=== PATIENT | female | born 1970 | race Caucasian/White ===

== ENCOUNTER 2016-08-15 13:33 | Observation (INO) | payer OTHER ==
[~2016-08-15] VITALS: Ht 152.4 cm; Wt 114.3 kg
[~2016-08-15 13:33] MED LIST: ACETAZOLAMID250 MG OR; ADLT ASA LOW81 MG PO; ADVAIR DISK1 IN; ALBUTEROL S2.5 MG/.5 IN; AMOXICILLIN500 MG OR; ATENOLOL50 MG OR; ATENOLOL50 MG PO; ATUSS DS OR; CALTRATE 600 OR; CEPHALEXIN500 MG PO; CIPROFLOXACN500 MG PO; CITALOPRAM20 MG OR; CITALOPRAM20 MG PO; CYCLOBENZAPR10 MG PO; FERROUS FUM324 MG OR; FLEXERIL PO; FLEXERIL10 MG PO; GLUCOPHAGE500 MG PO; HYDROCHLOROT12.5 MG OR; HYDROCHLOROT12.5 MG PO; LISINOPRIL20 M1 PO; LORTAB 10-325 M1 TAB PO; LORTAB 7.5 OR; METFORMIN1000 MG PO; METFORMIN500 MG PO; METHYLPRED4 MG PO; NAPROSYN500 MG OR; NAPROSYN500 MG PO; PERCOCET 5/325M1 TAB PO; PHENERGAN25 MG/TAB PO; PREMARIN0.625 MG OR; PROAIR HFA IN; PROMETHAZINE25 MG PO; ROBITUSSIN AC10 ML PO; SPRINTEC 2828 DAY PO; TRAMADOL HCL50 MG PO; ULTRAM50 M1 PO; ULTRAM50 MG OR; ULTRAM50 MG PO; VIT B12 PO; VITAMIN D2000 UNIT OR; ZOFRAN ODT4 MG PO; ZPAK OR
--- NOTE | 2016-08-15 13:53 | NUR ---
PT IMMEDIATELY TO ROOM 14 VIA WC. EKG PERFORMED AND DR JIMENEZ TO BEDSIDE. CALL LIGHT IN REACH.
[2016-08-15 14:26] LABS: HEMATOCRIT 41.1 % (37.0-47.0); HEMOGLOBIN 13.4 g/dl (12.0-16.0); IMMATURE GRANULOCYTES 0.4 % (0.0-1.0); MEAN CELL VOLUME 85.1 fL CALC (80.0-100.0); MEAN CORPUSCULAR HGB 27.7 pG CALC (26.0-32.0); MEAN CORPUSCULAR HGB CONC 32.6 g/L CALC (32.0-36.0); NEUT# 10.51 thou/uL (2.00-7.15); RED BLOOD COUNT 4.83 mill/uL (4.20-5.60); RED CELL DISTRI WIDTH 13.3 % (11.5-15.5)
--- NOTE | 2016-08-15 14:30 | NUR ---
PT RETSIN MATTHIAS THE STERTCHER WITH COMPLAINTS OF SHARP CP WHEN DEEP BRETAHING OR ENGAGING MUSCLE.
[2016-08-15 14:45] LABS: ALBUMIN 3.8 g/dL (3.2-5.0); ALKALINE PHOSPHATASE 118 u/l (38-126); ANION GAP 17 (6-22 (CALC)); BILIRUBIN, TOTAL 0.9 mg/dL (0.0-1.4); BUN 10 mg/dL (7-17); BUN/CREATININE RATIO 19 (12-20 (CALC)); CALCIUM 8.8 mg/dL (8.4-10.2); CARBON DIOXIDE 27 mmol/l (22-30); CHLORIDE 96 mmol/l (95-108); CREATININE 0.5 mg/dL (0.5-1.0); GFR > 60 ML/MIN (>=60 (CALC)); GFR FOR AFR.AMER. > 60 ML/MIN (>=60 (CALC)); GLUCOSE 305 mg/dL (65-105); SGOT/AST 19 u/l (14-36); SGPT/ALT 39 u/l (9-52); SODIUM 136 mmol/l (137-146); TOTAL PROTEIN 7.6 g/dL (6.3-8.2)
[2016-08-15 14:56] LABS: MYOGLOBIN 22 ng/mL (0 - 62)
--- NOTE | 2016-08-15 15:45 | NUR ---
PT REPORTS PAIN HAS DIMISHED SIGNIFICANTLY
--- NOTE | 2016-08-15 16:50 | NUR ---
PT RESTING WITH EYES CLOSED. NO SIGNS IF DUSTRESS NOTED. IV SITE HEALTHY
--- NOTE | 2016-08-15 17:32 | NUR ---
PT RESTING WITH EYES CLOSED AWAITING ADMISSION. PT IS TO BE HELD IN ER UNTIL AFTER SHIFT CHANGE PT AWARE. NO COMPLAINTS AT THIS TIME.
--- NOTE | 2016-08-15 18:25 | NUR ---
PT CONSUMING MEAL TRAY WITH NO SIGNS OF DISRESS AWAITING ADMISSION
--- NOTE | 2016-08-15 19:30 | NUR ---
PT AWAITING ADMISSION WITH NO SIGNS OF DISTRESS.
--- NOTE | 2016-08-15 20:10 | NUR ---
Admission Note Report Given to: sbar printed to floor Transported by: Wheelchair x Stretcher Transported with: x Nurse Transporter x Patent IV O2 x Dishwashing Machine Operator
[2016-08-15 20:15] VITALS: BP 133/84
--- NOTE | 2016-08-15 20:15 | NUR ---
45 yr old white female admitted icu5 per stretcher as [employer] tele overflow. stood to weigh then to bed. ophthalmology technician shows sinus tach. #20 rac saline lock. history obtained per pt & er record. oriented to room. fall precautions initiated.
--- NOTE | 2016-08-15 20:30 | NUR ---
dr loya called. updated on pts condition. new orders rec'd.
--- NOTE | 2016-08-15 20:55 | NUR ---
lortab 5/325mg po given for c/o "sharp" chest pain.
--- NOTE | 2016-08-15 22:15 | NUR ---
lab here. blood drawn.
[2016-08-15 23:45] VITALS: BP 172/66
--- NOTE | 2016-08-15 23:45 | NUR ---
up to br. urine spec collected & sent to lab. c/o ariza & "sharp" chest pain & requested sleeping pill. tylenol 650mg & restoril 15mg po given.
[2016-08-15 23:57] LABS: URINE BILIRUBIN - DIPSTICK NEGATIVE (NEGATIVE); URINE BLOOD DIPSTICK TRACE-INTACT (NEGATIVE); URINE CLARITY SLIGHT CLOUDY; URINE COLOR YELLOW; URINE GLUCOSE - DIPSTICK >=1000 mg/dL (NEGATIVE); URINE KETONE NEGATIVE (NEGATIVE); URINE LEUK ESTERASE NEGATIVE (Negative); URINE NITRITE - DIPSTICK NEGATIVE (Negative); URINE PROTEIN - DIPSTICK NEGATIVE (NEG-TRACE); URINE UROBILINOGEN - DIPSTICK 0.2 E.U./dL (0.2)
--- NOTE | 2016-08-16 00:15 | NUR ---
lab here. blood drawn.
--- NOTE | 2016-08-16 04:00 | NUR ---
eyes closed. no apparent distress. monitor shows sinus rhythm.
--- NOTE | 2016-08-16 04:25 | NUR ---
lab here. blood drawn. c/o sharp chest & neck pain with movement & inspiration. lortab 5/325mg po given.
[2016-08-16 04:30] VITALS: BP 157/76
[2016-08-16 05:42] LABS: HEMATOCRIT 35.8 % (37.0-47.0); HEMOGLOBIN 11.8 g/dl (12.0-16.0); IMMATURE GRANULOCYTES 1.4 % (0.0-1.0); MEAN CELL VOLUME 84.8 fL CALC (80.0-100.0); NEUT# 9.13 thou/uL (2.00-7.15); RED BLOOD COUNT 4.22 mill/uL (4.20-5.60); RED CELL DISTRI WIDTH 13.6 % (11.5-15.5)
[2016-08-16 05:51] LABS: ALBUMIN 3.1 g/dL (3.2-5.0); ALKALINE PHOSPHATASE 94 u/l (38-126); ANION GAP 13 (6-22 (CALC)); BILIRUBIN, TOTAL 0.9 mg/dL (0.0-1.4); BUN 10 mg/dL (7-17); BUN/CREATININE RATIO 23 (12-20 (CALC)); CALCIUM 8.5 mg/dL (8.4-10.2); CALCULATED LDLCHOLESTEROL 34 mg/dL (62-129 (CALC)); CARBON DIOXIDE 27 mmol/l (22-30); CHLORIDE 99 mmol/l (95-108); CREATININE 0.5 mg/dL (0.5-1.0); GFR > 60 ML/MIN (>=60 (CALC)); GFR FOR AFR.AMER. > 60 ML/MIN (>=60 (CALC)); GLUCOSE 325 mg/dL (65-105); HDL CHOLESTEROL 24 mg/dL (>=40); SGOT/AST 17 u/l (14-36); SGPT/ALT 35 u/l (9-52); SODIUM 135 mmol/l (137-146); TOTAL CHOLESTEROL 88 mg/dl (0-199); TOTAL PROTEIN 6.3 g/dL (6.3-8.2); TOTAL TRIGLYCERIDES 151 mg/dl (30-149); VLDL CHOLESTROL 30 mg/dl (1-41 (CALC))
[2016-08-16 07:15] VITALS: BP 142/84
--- NOTE | 2016-08-16 07:15 | NUR ---
PT LAYING IN BED TALKING ON HER PHONE, DENIES ANY PAIN, A & O X3, PERRL, HR 97, RESP. 20, BP 142/84, O2 100% ON RA, 20G G LAC IV SALINE LOCKED, NO REDNESS OR DRAINAGE, AM ASSESSMENT COMPLETE, SEE INTERVENTIONS, SAFETY MEASURES REINFORCED, CALL CARNEY WITHIN REACH
[2016-08-16] MEDS ORDERED: GLIPIZIDE ER5 M1 PO (08:03)
[2016-08-16] MEDS ORDERED: GLUCOPHAGE500 MG PO (08:03)
[2016-08-16] MEDS ORDERED: ADLT ASA LOW81 MG PO (08:03)
[2016-08-16] MEDS ORDERED: ATORVASTATIN CA10 MG PO (08:03)
--- NOTE | 2016-08-16 08:10 | NUR ---
DR JARA AT BEDSIDE DISCUSSING PLAN OF CARE AND DISCHARGE PLAN
[2016-08-16] MEDS ORDERED: ZPAK PO (08:14)
--- NOTE | 2016-08-16 09:08 | NUR ---
Discharge instructions given. Patient verbalizes understanding of same. Discharged in stable condition via Wheelchair to Home with family. All belongings sent with pt.
== END 2016-08-16 08:50 | disposition home or self-care (01) | DRG 313 ==
LOC: ENPENDDIS → ED 13:33 → ED-I 16:33 → ED 16:39 → MS2 16:40 → ICU 19:57
PROVIDERS: Emergency Medicine; ADMIT Internal Medicine; ATTEND Internal Medicine
DX: R07.2 Precordial pain (principal); E11.65 Type 2 diabetes mellitus with hyperglycemia; I10 Essential (primary) hypertension; F32.9 Major depressive disorder, single episode, unspecified; E66.01 Morbid (severe) obesity due to excess calories; Z79.84 Long term (current) use of oral hypoglycemic drugs; Z91.14 Patient's other noncompliance with medication regimen; Z82.49 Family history of ischemic heart disease and other diseases of the circulatory system

== ENCOUNTER 2017-06-22 14:36 | Emergency (ER) | payer OTHER ==
[~2017-06-22] VITALS: Ht 162.6 cm; Wt 111.0 kg
[~2017-06-22 14:36] MED LIST changes: +ATORVASTATIN CA10 MG PO; +GLIPIZIDE ER5 M1 PO; +ZPAK PO
[2017-06-22 15:38] LABS: INFLUENZA A NONE DETECTED (NONE DETECT); INFLUENZA B NONE DETECTED (NONE DETECT)
[2017-06-22 16:05] VITALS: BP 150/80
== END 2017-06-22 16:05 | disposition home or self-care (01) | DRG 153 ==
LOC: ED 14:36
PROVIDERS: Emergency Medicine
DX: J06.9 Acute upper respiratory infection, unspecified (principal); M79.1 Myalgia; R05 Cough; R09.81 Nasal congestion

== ENCOUNTER 2017-07-22 16:20 | Emergency (ER) | payer OTHER ==
[~2017-07-22] VITALS: Ht 162.6 cm; Wt 112.2 kg
[2017-07-22 17:05] LABS: URINE BILIRUBIN - DIPSTICK NEGATIVE (NEGATIVE); URINE BLOOD DIPSTICK LARGE (NEGATIVE); URINE COLOR YELLOW; URINE GLUCOSE - DIPSTICK >=1000 mg/dL (NEGATIVE); URINE KETONE NEGATIVE (NEGATIVE); URINE LEUK ESTERASE NEGATIVE (NEGATIVE); URINE NITRITE - DIPSTICK NEGATIVE (Negative); URINE PH 6.5 (4.5-8.0); URINE PROTEIN - DIPSTICK TRACE mg/dL (NEG-TRACE); URINE SPECIFIC GRAVITY 1.015; URINE UROBILINOGEN - DIPSTICK 0.2 E.U./dL (0.2)
[2017-07-22 17:06] LABS: URINE CLARITY CLEAR
[2017-07-22 17:32] LABS: URINE RBC TNTC RBC/hpf (0-5)
[2017-07-22 17:33] LABS: URINE SQUAMOUS EPITHELIAL CELL FEW EPI/hpf (0-FEW)
[2017-07-22] MEDS ORDERED: BUPROPION HCL150 MG PO (17:37)
[2017-07-22] MEDS ORDERED: LOSARTAN POTASS1 TA1 PO (17:37)
[2017-07-22 17:56] LABS: IMMATURE GRANULOCYTES 0.8 % (0.0-1.0); MEAN CELL VOLUME 87.5 fL CALC (80.0-100.0); MEAN CORPUSCULAR HGB CONC 33.1 g/L CALC (32.0-36.0); NEUT# 9.62 thou/uL (2.00-7.15); RED BLOOD COUNT 5.14 mill/uL (4.20-5.60); RED CELL DISTRI WIDTH 12.7 % (11.5-15.5)
[2017-07-22 18:35] LABS: ALKALINE PHOSPHATASE 125 u/l (38-126); ANION GAP 16 (6-22 (CALC)); BILIRUBIN, TOTAL 0.6 mg/dL (0.0-1.4); BUN 10 mg/dL (7-17); BUN/CREATININE RATIO 20 (12-20 (CALC)); CARBON DIOXIDE 28 mmol/l (22-30); CHLORIDE 99 mmol/l (95-108); CREATININE 0.5 mg/dL (0.5-1.0); GFR > 60 ML/MIN (>=60 (CALC)); GFR FOR AFR.AMER. > 60 ML/MIN (>=60 (CALC)); POTASSIUM 4.6 mmol/l (3.5-5.1); SGPT/ALT 47 u/l (9-52); SODIUM 138 mmol/l (137-146); TOTAL PROTEIN 7.4 g/dL (6.3-8.2)
[2017-07-22 18:42] LABS: SGOT/AST 39 u/l (14-36)
[2017-07-22 18:51] LABS: HEMOGLOBIN 14.9 g/dl (12.0-16.0)
[2017-07-22] MEDS ORDERED: SEPTRA4001 PO (20:43)
[2017-07-22] MEDS ORDERED: PYRIDIUM200 MG PO (20:43)
[2017-07-22 20:44] VITALS: BP 151/79
== END 2017-07-22 20:58 | disposition home or self-care (01) | DRG 690 ==
LOC: ED 16:20
PROVIDERS: Emergency Medicine
DX: N30.90 Cystitis, unspecified without hematuria (principal); K76.0 Fatty (change of) liver, not elsewhere classified; B96.20 Unspecified Escherichia coli [E. coli] as the cause of diseases classified elsewhere; I10 Essential (primary) hypertension; E11.9 Type 2 diabetes mellitus without complications; R35.0 Frequency of micturition; Z79.84 Long term (current) use of oral hypoglycemic drugs
CPT/HCPCS: Q9967

== ENCOUNTER 2018-01-27 16:15 | Observation (INO) | payer OTHER ==
[~2018-01-27] VITALS: Ht 162.6 cm; Wt 112.0 kg
[~2018-01-27 16:15] MED LIST changes: +BUPROPION HCL150 MG PO; +LOSARTAN POTASS1 TA1 PO; +PYRIDIUM200 MG PO; +SEPTRA4001 PO
[2018-01-27 17:25] LABS: HEMATOCRIT 43.5 % (37.0-47.0); HEMOGLOBIN 14.8 g/dl (12.0-16.0); IMMATURE GRANULOCYTES 0.5 % (0.0-5.0); MEAN CELL VOLUME 87.9 fL CALC (80.0-100.0); MEAN CORPUSCULAR HGB 29.9 pG CALC (26.0-32.0); NEUT# 8.85 thou/uL (2.00-7.15); RED BLOOD COUNT 4.95 mill/uL (4.20-5.60); RED CELL DISTRI WIDTH 12.6 % (11.5-15.5)
[2018-01-27] MEDS ORDERED: METFORMIN500 MG PO (17:26)
[2018-01-27 17:51] LABS: ALBUMIN 3.8 g/dL (3.2-5.0); ALKALINE PHOSPHATASE 102 u/l (38-126); ANION GAP 16 (6-22 (CALC)); BILIRUBIN, TOTAL 0.5 mg/dL (0.0-1.4); BUN 9 mg/dL (7-17); BUN/CREATININE RATIO 18 (12-20 (CALC)); CARBON DIOXIDE 28 mmol/l (22-30); CHLORIDE 98 mmol/l (95-108); CREATININE 0.5 mg/dL (0.5-1.0); GFR > 60 ML/MIN (>=60 (CALC)); GFR FOR AFR.AMER. > 60 ML/MIN (>=60 (CALC)); POTASSIUM 4.3 mmol/l (3.5-5.1); SGOT/AST 22 u/l (14-36); SGPT/ALT 37 u/l (9-52); SODIUM 137 mmol/l (137-146); TOTAL PROTEIN 7.2 g/dL (6.3-8.2)
[2018-01-27 20:00] VITALS: BP 158/95
[2018-01-27 20:49] LABS: URINE BILIRUBIN - DIPSTICK NEGATIVE (NEGATIVE); URINE BLOOD DIPSTICK NEGATIVE (NEGATIVE); URINE COLOR YELLOW; URINE GLUCOSE - DIPSTICK >=1000 mg/dL (NEGATIVE); URINE KETONE NEGATIVE (NEGATIVE); URINE LEUK ESTERASE NEGATIVE (Negative); URINE NITRITE - DIPSTICK NEGATIVE (Negative); URINE PH 6.5 (4.5-8.0); URINE PROTEIN - DIPSTICK NEGATIVE (NEG-TRACE); URINE UROBILINOGEN - DIPSTICK 0.2 E.U./dL (0.2)
[2018-01-27 20:50] LABS: URINE CLARITY CLEAR
[2018-01-28 03:55] VITALS: BP 145/89
[2018-01-28 07:48] VITALS: BP 138/78
[2018-01-28 15:17] VITALS: BP 151/88
[2018-01-28 20:00] VITALS: BP 133/76
[2018-01-29 04:00] VITALS: BP 130/75
[2018-01-29 05:12] LABS: HEMATOCRIT 42.9 % (37.0-47.0); HEMOGLOBIN 14.3 g/dl (12.0-16.0); IMMATURE GRANULOCYTES 0.6 % (0.0-5.0); MEAN CELL VOLUME 90.5 fL CALC (80.0-100.0); MEAN CORPUSCULAR HGB 30.2 pG CALC (26.0-32.0); MEAN CORPUSCULAR HGB CONC 33.3 g/L CALC (32.0-36.0); NEUT# 7.78 thou/uL (2.00-7.15); RED BLOOD COUNT 4.74 mill/uL (4.20-5.60); RED CELL DISTRI WIDTH 12.7 % (11.5-15.5)
[2018-01-29 05:33] LABS: ALBUMIN 3.3 g/dL (3.2-5.0); ALKALINE PHOSPHATASE 88 u/l (38-126); ANION GAP 16 (6-22 (CALC)); BILIRUBIN, TOTAL 0.5 mg/dL (0.0-1.4); BUN 8 mg/dL (7-17); BUN/CREATININE RATIO 19 (12-20 (CALC)); CARBON DIOXIDE 24 mmol/l (22-30); CHLORIDE 103 mmol/l (95-108); CREATININE 0.4 mg/dL (0.5-1.0); GFR > 60 ML/MIN (>=60 (CALC)); GFR FOR AFR.AMER. > 60 ML/MIN (>=60 (CALC)); MAGNESIUM 1.7 mg/dL (1.6-2.3); POTASSIUM 4.1 mmol/l (3.5-5.1); SGOT/AST 17 u/l (14-36); SGPT/ALT 36 u/l (9-52); SODIUM 140 mmol/l (137-146); TOTAL PROTEIN 6.5 g/dL (6.3-8.2)
[2018-01-29 07:27] VITALS: BP 139/76
[2018-01-29 08:36] VITALS: BP 139/76
[2018-01-29] MEDS ORDERED: LEVEMIR100 UNIT/M SC (10:30)
[2018-01-29] MEDS ORDERED: BUPROPION HCL150 M1 PO (11:10)
[2018-01-29] MEDS ORDERED: LIPITOR20 M1 PO (11:10)
[2018-01-29] MEDS ORDERED: METFORMIN500 M1 PO (11:10)
[2018-01-29] MEDS ORDERED: LOSARTAN POT100 MG PO (11:10)
[2018-01-29] MEDS ORDERED: LEVEMIR FL100 UNIT/M SC (11:14)
== END 2018-01-29 13:55 | disposition home or self-care (01) ==
LOC: ED 16:15 → ED-I 18:02 → ED 18:57 → MS2 18:58
PROVIDERS: Emergency Medicine; Internal Medicine Nephrology; ADMIT Internal Medicine; ATTEND Internal Medicine
DX: I10 Essential (primary) hypertension (principal); E11.65 Type 2 diabetes mellitus with hyperglycemia; F32.9 Major depressive disorder, single episode, unspecified; E66.01 Morbid (severe) obesity due to excess calories; Z68.41 Body mass index [BMI] 40.0-44.9, adult; G43.909 Migraine, unspecified, not intractable, without status migrainosus; D72.829 Elevated white blood cell count, unspecified; J40 Bronchitis, not specified as acute or chronic; Z91.14 Patient's other noncompliance with medication regimen; Z23 Encounter for immunization
CPT/HCPCS: G0378

== ENCOUNTER 2018-02-19 10:21 | Emergency (ER) | payer OTHER ==
[~2018-02-19] VITALS: Ht 162.6 cm; Wt 112.0 kg
[~2018-02-19 10:21] MED LIST changes: +BUPROPION HCL150 M1 PO; +LEVEMIR FL100 UNIT/M SC; +LEVEMIR100 UNIT/M SC; +LIPITOR20 M1 PO; +LOSARTAN POT100 MG PO; +METFORMIN500 M1 PO
[2018-02-19] MEDS ORDERED: LEVEMIR100 UNIT/M SC (10:31)
[2018-02-19 11:05] LABS: HEMATOCRIT 43.2 % (37.0-47.0); HEMOGLOBIN 14.5 g/dl (12.0-16.0); IMMATURE GRANULOCYTES 0.8 % (0.0-5.0); MEAN CELL VOLUME 89.4 fL CALC (80.0-100.0); MEAN CORPUSCULAR HGB CONC 33.6 g/L CALC (32.0-36.0); NEUT# 7.96 thou/uL (2.00-7.15); RED BLOOD COUNT 4.83 mill/uL (4.20-5.60); RED CELL DISTRI WIDTH 12.5 % (11.5-15.5); URINE BILIRUBIN - DIPSTICK NEGATIVE (NEGATIVE); URINE BLOOD DIPSTICK TRACE-LYSED (NEGATIVE); URINE CLARITY SL CLOUDY; URINE COLOR YELLOW; URINE GLUCOSE - DIPSTICK >=1000 mg/dL (NEGATIVE); URINE KETONE NEGATIVE (NEGATIVE); URINE LEUK ESTERASE NEGATIVE (NEGATIVE); URINE NITRITE - DIPSTICK NEGATIVE (Negative); URINE PROTEIN - DIPSTICK NEGATIVE (NEG-TRACE); URINE UROBILINOGEN - DIPSTICK 0.2 E.U./dL (0.2)
[2018-02-19 11:11] LABS: ALBUMIN 3.8 g/dL (3.2-5.0); ALKALINE PHOSPHATASE 102 u/l (38-126); AMYLASE 37 u/l (30-110); ANION GAP 14 (6-22 (CALC)); BILIRUBIN, TOTAL 0.5 mg/dL (0.0-1.4); BUN 7 mg/dL (7-17); BUN/CREATININE RATIO 15 (12-20 (CALC)); CARBON DIOXIDE 28 mmol/l (22-30); CHLORIDE 101 mmol/l (95-108); CREATININE 0.4 mg/dL (0.5-1.0); GFR > 60 ML/MIN (>=60 (CALC)); GFR FOR AFR.AMER. > 60 ML/MIN (>=60 (CALC)); LIPASE 114 u/l (23-300); POTASSIUM 4.3 mmol/l (3.5-5.1); SGOT/AST 22 u/l (14-36); SODIUM 139 mmol/l (137-146); TOTAL PROTEIN 7.2 g/dL (6.3-8.2)
[2018-02-19 11:23] LABS: MYOGLOBIN 21 ng/mL (0 - 62)
[2018-02-19] MEDS ORDERED: PEPCID20 MG PO ×2 (12:01→12:16)
[2018-02-19 12:07] VITALS: BP 157/71
== END 2018-02-19 12:35 | disposition home or self-care (01) ==
LOC: ED 10:21
DX: K29.70 Gastritis, unspecified, without bleeding (principal); E11.65 Type 2 diabetes mellitus with hyperglycemia; I10 Essential (primary) hypertension; F32.9 Major depressive disorder, single episode, unspecified; Z79.4 Long term (current) use of insulin; Z91.14 Patient's other noncompliance with medication regimen; R10.13 Epigastric pain; R10.11 Right upper quadrant pain; R94.31 Abnormal electrocardiogram [ECG] [EKG]

== ENCOUNTER → 2018-02-24 | Outpatient (REF) | payer OTHER ==
[~2018-02-24] MED LIST changes: +PEPCID20 MG PO
[2018-02-24 09:04] LABS: IMMATURE GRANULOCYTES 0.5 % (0.0-5.0); MEAN CELL VOLUME 88.6 fL CALC (80.0-100.0); MEAN CORPUSCULAR HGB 29.5 pG CALC (26.0-32.0); MEAN CORPUSCULAR HGB CONC 33.3 g/L CALC (32.0-36.0); RED BLOOD COUNT 4.74 mill/uL (4.20-5.60); RED CELL DISTRI WIDTH 12.4 % (11.5-15.5)
[2018-02-24 09:27] LABS: ALBUMIN 3.5 g/dL (3.2-5.0); ALKALINE PHOSPHATASE 102 u/l (38-126); AMYLASE 33 u/l (30-110); ANION GAP 15 (6-22 (CALC)); BILIRUBIN, TOTAL 0.4 mg/dL (0.0-1.4); BUN 6 mg/dL (7-17); BUN/CREATININE RATIO 15 (12-20 (CALC)); CALCULATED LDLCHOLESTEROL 20 mg/dL (62-129 (CALC)); CARBON DIOXIDE 25 mmol/l (22-30); CHLORIDE 102 mmol/l (95-108); CHOLESTEROL HDL RATIO 4.3 (<4.4 (CALC)); CREATININE 0.4 mg/dL (0.5-1.0); GFR > 60 ML/MIN (>=60 (CALC)); GFR FOR AFR.AMER. > 60 ML/MIN (>=60 (CALC)); HDL CHOLESTEROL 24 mg/dL (>=40); LIPASE 115 u/l (23-300); POTASSIUM 4.2 mmol/l (3.5-5.1); SGOT/AST 17 u/l (14-36); SODIUM 138 mmol/l (137-146); TOTAL CHOLESTEROL 101 mg/dl (0-199); TOTAL PROTEIN 6.9 g/dL (6.3-8.2); TRIGLYCERIDES REFLEX TO dLDL 287 mg/dl (30-149); VLDL CHOLESTROL 57 mg/dl (1-41 (CALC))
== END | disposition home or self-care (01) ==
LOC: LAB 08:35
PROVIDERS: ATTEND Physician Assistant Medical
DX: R10.11 Right upper quadrant pain (principal); Z13.228 Encounter for screening for other metabolic disorders

== ENCOUNTER 2018-05-31 16:06 | Emergency (ER) | payer OTHER ==
[~2018-05-31] VITALS: Ht 162.6 cm; Wt 109.0 kg
[2018-05-31] MEDS ORDERED: FLEXERIL PO (19:25)
[2018-05-31 19:29] VITALS: BP 164/93
== END 2018-05-31 19:34 | disposition home or self-care (01) ==
LOC: ED 16:06
DX: S29.011A Strain of muscle and tendon of front wall of thorax, initial encounter (principal); R07.81 Pleurodynia

== ENCOUNTER 2018-12-02 19:51 | Emergency (ER) | payer OTHER ==
[~2018-12-02] VITALS: Ht 162.6 cm; Wt 108.6 kg
[2018-12-02 20:32] LABS: IMMATURE GRANULOCYTES 1.2 % (0.0-5.0); MEAN CELL VOLUME 87.3 fL CALC (80.0-100.0); MEAN CORPUSCULAR HGB CONC 33.2 g/L CALC (32.0-36.0); NEUT# 9.12 thou/uL (2.00-7.15); RED BLOOD COUNT 4.41 mill/uL (4.20-5.60); RED CELL DISTRI WIDTH 12.7 % (11.5-15.5)
[2018-12-02 20:38] LABS: HEMATOCRIT 38.5 % (37.0-47.0); HEMOGLOBIN 12.8 g/dl (12.0-16.0)
[2018-12-02 20:39] LABS: URINE BILIRUBIN - DIPSTICK NEGATIVE (NEGATIVE); URINE BLOOD DIPSTICK NEGATIVE (NEGATIVE); URINE COLOR YELLOW; URINE GLUCOSE - DIPSTICK >=1000 mg/dL (NEGATIVE); URINE KETONE NEGATIVE (NEGATIVE); URINE LEUK ESTERASE NEGATIVE (NEGATIVE); URINE NITRITE - DIPSTICK NEGATIVE (Negative); URINE PH 6.5 (4.5-8.0); URINE PROTEIN - DIPSTICK NEGATIVE (NEG-TRACE)
[2018-12-02 20:51] LABS: ALKALINE PHOSPHATASE 112 u/l (38-126); ANION GAP 14 (6-22 (CALC)); BILIRUBIN, TOTAL 0.4 mg/dL (0.0-1.4); BUN 7 mg/dL (7-17); BUN/CREATININE RATIO 16 (12-20 (CALC)); CARBON DIOXIDE 28 mmol/l (22-30); CHLORIDE 99 mmol/l (95-108); CREATININE 0.4 mg/dL (0.5-1.0); GFR > 60 ML/MIN (>=60 (CALC)); GFR FOR AFR.AMER. > 60 ML/MIN (>=60 (CALC)); POTASSIUM 4.2 mmol/l (3.5-5.1); SGOT/AST 32 u/l (14-36); SODIUM 137 mmol/l (137-146); TOTAL PROTEIN 7.5 g/dL (6.3-8.2)
[2018-12-02 21:35] VITALS: BP 158/81
[2018-12-02] MEDS ORDERED: [UNRECOGNIZED DRUG - OTHER] PO (21:45)
[2018-12-02] MEDS ORDERED: FIORICET PO (21:45)
== END 2018-12-02 21:59 | disposition home or self-care (01) ==
LOC: ED 19:51
PROVIDERS: Family Medicine
DX: R42 Dizziness and giddiness (principal); E11.65 Type 2 diabetes mellitus with hyperglycemia; J31.0 Chronic rhinitis; I10 Essential (primary) hypertension; R51 Headache; Z79.4 Long term (current) use of insulin

== ENCOUNTER 2020-02-08 15:41 | Observation (INO) | payer OTHER ==
[~2020-02-08] VITALS: Ht 162.6 cm; Wt 105.3 kg
[~2020-02-08 15:41] MED LIST changes: +FIORICET PO; +[UNRECOGNIZED DRUG - OTHER] PO
--- NOTE | 2020-02-08 15:50 | NUR ---
PT AMBULATORY TO ROOM 9
[2020-02-08 16:14] LABS: HEMOGLOBIN 12.8 g/dl (12.0-16.0); IMMATURE GRANULOCYTES 0.4 % (0.0-5.0); MEAN CORPUSCULAR HGB 27.5 pG CALC (26.0-32.0); MEAN CORPUSCULAR HGB CONC 31.2 g/dL CAL (32.0-36.0); NEUT# 8.95 thou/uL (2.00-7.15); RED BLOOD COUNT 4.66 mill/uL (4.20-5.60); RED CELL DISTRI WIDTH 13.4 % (11.5-15.5)
[2020-02-08 16:28] LABS: GFR > 60 ML/MIN (>=60 (CALC)); GFR FOR AFR.AMER. > 60 ML/MIN (>=60 (CALC))
[2020-02-08 16:34] LABS: HCG SERUM/URINE (NEG/POS) NEGATIVE (NEGATIVE)
[2020-02-08 16:35] LABS: ALBUMIN 4.2 g/dL (3.2-5.0); ALKALINE PHOSPHATASE 93 u/l (38-126); ANION GAP 14 (6-22 (CALC)); BILIRUBIN, TOTAL 0.4 mg/dL (0.0-1.4); BUN 8 mg/dL (7-17); BUN/CREATININE RATIO 16 (12-20 (CALC)); CARBON DIOXIDE 26 mmol/l (22-30); CHLORIDE 100 mmol/l (95-108); CREATININE 0.5 mg/dL (0.5-1.0); GFR > 60 ML/MIN (>=60 (CALC)); GFR FOR AFR.AMER. > 60 ML/MIN (>=60 (CALC)); SGOT/AST 21 u/l (14-36); SODIUM 136 mmol/l (137-146); TOTAL PROTEIN 7.8 g/dL (6.3-8.2)
--- NOTE | 2020-02-08 16:44 | NUR ---
MEDICATED WITH REGLAN 10MG IVP FOR C/O 12/25 HEADACHE.
--- NOTE | 2020-02-08 17:09 | NUR ---
MD AT BEDSIDE TO DISCUSS RESULTS AND POC.
[2020-02-08 17:41] LABS: URINE BILIRUBIN - DIPSTICK NEGATIVE (NEGATIVE); URINE BLOOD DIPSTICK NEGATIVE (NEGATIVE); URINE COLOR YELLOW; URINE GLUCOSE - DIPSTICK NEGATIVE (NEGATIVE); URINE KETONE NEGATIVE (NEGATIVE); URINE LEUK ESTERASE NEGATIVE (NEGATIVE); URINE NITRITE - DIPSTICK NEGATIVE (Negative); URINE PROTEIN - DIPSTICK NEGATIVE (NEG-TRACE); URINE SPECIFIC GRAVITY 1.015
--- NOTE | 2020-02-08 18:00 | NUR ---
RESTING ON STRETCHER WITH HOB ELEVATED, REPORTS HEADACHE 4/10. DENIES NEEDS AT THIS TIME.
[2020-02-08] MEDS ORDERED: FIORICET PO (18:04)
[2020-02-08] MEDS ORDERED: BYDUREON B2 MG/0.85 IJ (18:06)
[2020-02-08] MEDS ORDERED: ARNUITY EL50 MCG/ACT (18:07)
[2020-02-08] MEDS ORDERED: HYDROCHLOROT12.5 MG PO (18:08)
[2020-02-08] MEDS ORDERED: GABAPENTIN100 MG PO (18:08)
[2020-02-08] MEDS ORDERED: KLS IBUPROFEN IB PO (18:09)
[2020-02-08] MEDS ORDERED: TRAZODONE50 MG PO (18:10)
--- NOTE | 2020-02-08 18:23 | NUR ---
NURSE TO NURSE REPORT CALLED TO ORALIA AGUILAR.
--- NOTE | 2020-02-08 18:38 | NUR ---
PT ARRIVED TO THE FLOOR VIA WHEELCHAIR ACCOMPANIED BY ED STAFF. PT ABLE TO ABULATE FROM WHEELCHAIR TO BED WITH A STEADY GATE. VS OBTAINED AT THIS TIME. PT ORIENTED TO ROOM AND CALL [facility]NEY SYSTEM. SAFETY PRECAUTIONS IN PLACE. WILL CONTINUE TO MONITOR.
--- NOTE | 2020-02-08 18:40 | NUR ---
TO ROOM 278 VIA WHEECHAIR, BEDSIDE REPORT GIVEN TO ORALIA AGUILAR.
[2020-02-08 19:00] VITALS: BP 150/92
--- NOTE | 2020-02-08 19:30 | NUR ---
PT AMBULATING FROM BED TO RECLINER AT BEDSIDE, WITH A STEADY GATE. PT IS ALERT AND ORIENTED. ASSESSMANT COMPLETED AT THIS TIME. RESPIRATIONS ARE EVEN AND UNLABORED ON RA, LUNGS SOUND CLEAR. PEDAL PULSES ARE STRONG. PT REPORTS HAVING A MILD HEADACHE STATING "IT'S BETTER THAN IT WAS." PT PROVIDED WITH ICE WATER PER REQUEST. TELE IN PLACE. CALL CARNEY WITHIN REACH. WILL CONTINUE TO MONITOR.
--- NOTE | 2020-02-09 00:05 | NUR ---
PT RESTING IN BED, NO S/S OF DISTRESS AT THIS TIME. SAFETY PRECAUTIONS IN PLACE. WILL CONTINUE TO MONITOR.
--- NOTE | 2020-02-09 04:19 | NUR ---
PT RESTING IN BED, FREE FROM DISTRESS AT THIS TIME, TELE IN PLACE. WILL CONTINUE TO MONITOR.
[2020-02-09 04:30] VITALS: BP 154/88
[2020-02-09 05:32] LABS: CHOLESTEROL HDL RATIO 4.4 (<4.4 (CALC))
[2020-02-09 07:40] VITALS: BP 155/94
--- NOTE | 2020-02-09 07:40 | NUR ---
ASSESSMENT IS COMPLTED: IV SITE IS FREE FROM REDNESS 0R EDEMA. HR IS REG, PULSES ARE STRONG X4, ABD IS SOFT WITH ACTIVE BS. BREATH SOUNDS ARE CLEAR,BILATERALLY, NO C/O SOB, CONTINUE WITH MILD HEADACHE,. CONTINUE TO OBSERVE AND MONITOR. TELE MONITOR IN PLACE.
[2020-02-09 11:24] VITALS: BP 147/95
--- NOTE | 2020-02-09 12:00 | NUR ---
PT HAS BEEN SITTING IN THE CHAIR NO DISTRESS NOTED. IV SITE IS FREE FROM REDNESS OR EDEMA.
--- NOTE | 2020-02-09 12:19 | NUR ---
IV SITE AND TELE DISCONTINEUD ON PT, BEING DISCHARGED ALL PAPERS GIVEN PT HAS AN APPOINTMENT SET UP WITH HER PCP THIS PM. CONTINUE TO OBSERVE AND MONITOR.
== END 2020-02-09 12:20 | disposition home or self-care (01) ==
LOC: ED 15:41 → ED-I 16:04 → ED 16:04 → ED-I 17:00 → ED 17:16 → MS2 17:17
PROVIDERS: Family Medicine; ADMIT Internal Medicine; ATTEND Internal Medicine
DX: G43.909 Migraine, unspecified, not intractable, without status migrainosus (principal); G83.84 Todd's paralysis (postepileptic); I10 Essential (primary) hypertension; E11.9 Type 2 diabetes mellitus without complications; F32.9 Major depressive disorder, single episode, unspecified; E66.01 Morbid (severe) obesity due to excess calories; Z79.4 Long term (current) use of insulin; Z68.39 Body mass index [BMI] 39.0-39.9, adult; Z20.828 Contact with and (suspected) exposure to other viral communicable diseases
CPT/HCPCS: G0378

== ENCOUNTER 2020-05-28 23:16 | Emergency (ER) | payer OTHER ==
[~2020-05-28] VITALS: Ht 162.6 cm; Wt 103.2 kg
[~2020-05-28 23:16] MED LIST changes: +ARNUITY EL50 MCG/ACT; +BYDUREON B2 MG/0.85 IJ; +GABAPENTIN100 MG PO; +KLS IBUPROFEN IB PO; +TRAZODONE50 MG PO
[2020-05-29] MEDS ORDERED: LORTAB 1010 MG PO (01:40)
[2020-05-29] MEDS ORDERED: CYCLOBENZAPRINE10 MG PO (01:40)
[2020-05-29 01:56] VITALS: BP 112/77
== END 2020-05-29 01:56 | disposition home or self-care (01) ==
LOC: ED 23:16
DX: S70.01XA Contusion of right hip, initial encounter (principal); M17.11 Unilateral primary osteoarthritis, right knee; E11.9 Type 2 diabetes mellitus without complications; I10 Essential (primary) hypertension; F32.9 Major depressive disorder, single episode, unspecified; W01.0XXA Fall on same level from slipping, tripping and stumbling without subsequent striking against object, initial encounter; Y92.009 Unspecified place in unspecified non-institutional (private) residence as the place of occurrence of the external cause; Z79.4 Long term (current) use of insulin

== ENCOUNTER 2020-06-08 11:00 | Emergency (ER) | payer OTHER ==
[~2020-06-08] VITALS: Ht 162.6 cm; Wt 102.6 kg
[~2020-06-08 11:00] MED LIST changes: +CYCLOBENZAPRINE10 MG PO; +LORTAB 1010 MG PO
[2020-06-08] MEDS ORDERED: BUPROPION HCL150 M2 PO (13:32)
[2020-06-08] MEDS ORDERED: BYDUREON2 MG IJ (13:33)
[2020-06-08] MEDS ORDERED: ATORVASTATIN CA10 MG PO (13:33)
[2020-06-08] MEDS ORDERED: TRAZODONE100 MG PO (13:34)
[2020-06-08] MEDS ORDERED: GABAPENTIN300 M2 PO (13:34)
[2020-06-08] MEDS ORDERED: VITAMIN B-121000 MC3 PO (13:35)
[2020-06-08] MEDS ORDERED: LEVOCETIRIZINE D5 MG PO (13:35)
[2020-06-08] MEDS ORDERED: LEVEMIR FL100 UNIT/M SC ×2 (13:37)
[2020-06-08] MEDS ORDERED: EMGALITY120 MG/ML IJ (13:38)
[2020-06-08] MEDS ORDERED: HYDROCHLOROT25 MG PO (13:38)
[2020-06-08] MEDS ORDERED: LOSARTAN POTAS100 MG PO (13:38)
[2020-06-08] MEDS ORDERED: METFORMIN HCL1000 MG PO (13:38)
[2020-06-08 13:51] LABS: URINE BILIRUBIN - DIPSTICK NEGATIVE (NEGATIVE); URINE BLOOD DIPSTICK NEGATIVE (NEGATIVE); URINE COLOR YELLOW; URINE GLUCOSE - DIPSTICK NEGATIVE (NEGATIVE); URINE KETONE NEGATIVE (NEGATIVE); URINE LEUK ESTERASE NEGATIVE (NEGATIVE); URINE NITRITE - DIPSTICK NEGATIVE (Negative); URINE PROTEIN - DIPSTICK NEGATIVE (NEG-TRACE); URINE UROBILINOGEN - DIPSTICK 0.2 E.U./dL (0.2)
[2020-06-08] MEDS ORDERED: DULCOLAX10 MG RE (15:29)
[2020-06-08 15:35] VITALS: BP 142/81
== END 2020-06-08 15:35 | disposition home or self-care (01) ==
LOC: ED 11:00
PROVIDERS: Family Medicine
DX: K59.00 Constipation, unspecified (principal); E11.9 Type 2 diabetes mellitus without complications; I10 Essential (primary) hypertension; F32.9 Major depressive disorder, single episode, unspecified; Z79.4 Long term (current) use of insulin

== ENCOUNTER 2020-09-12 12:28 | Emergency (ER) | payer BC, OTHER ==
[~2020-09-12 12:28] MED LIST changes: +BUPROPION HCL150 M2 PO; +BYDUREON2 MG IJ; +DULCOLAX10 MG RE; +EMGALITY120 MG/ML IJ; +GABAPENTIN300 M2 PO; +HYDROCHLOROT25 MG PO; +LEVOCETIRIZINE D5 MG PO; +LOSARTAN POTAS100 MG PO; +METFORMIN HCL1000 MG PO; +TRAZODONE100 MG PO; +VITAMIN B-121000 MC3 PO
[2020-09-12] MEDS ORDERED: FLEXERIL5 M1 PO (17:10)
[2020-09-12] MEDS ORDERED: IBUPROFEN600 MG PO (17:10)
[2020-09-12 17:37] VITALS: BP 132/78
== END 2020-09-12 17:38 | disposition home or self-care (01) | DRG 552 ==
LOC: ED 12:28
DX: S16.1XXA Strain of muscle, fascia and tendon at neck level, initial encounter (principal); S00.83XA Contusion of other part of head, initial encounter; E11.9 Type 2 diabetes mellitus without complications; I10 Essential (primary) hypertension; F32.9 Major depressive disorder, single episode, unspecified; W01.198A Fall on same level from slipping, tripping and stumbling with subsequent striking against other object, initial encounter; Y92.002 Bathroom of unspecified non-institutional (private) residence as the place of occurrence of the external cause; Z79.4 Long term (current) use of insulin
CPT/HCPCS: L0120

== ENCOUNTER 2020-11-10 18:36 | Emergency (ER) | payer BC, OTHER ==
[~2020-11-10] VITALS: Ht 162.6 cm; Wt 102.7 kg
[~2020-11-10 18:36] MED LIST changes: +FLEXERIL5 M1 PO; +IBUPROFEN600 MG PO
[2020-11-10 19:47] LABS: HEMOGLOBIN 13.3 g/dl (12.0-16.0); IMMATURE GRANULOCYTES 0.4 % (0.0-5.0); MEAN CELL VOLUME 91.5 fL CALC (80.0-100.0); MEAN CORPUSCULAR HGB CONC 31.7 g/dL CAL (32.0-36.0); NEUT# 8.06 thou/uL (2.00-7.15); RED BLOOD COUNT 4.59 mill/uL (4.20-5.60); RED CELL DISTRI WIDTH 13.2 % (11.5-15.5)
[2020-11-10 19:48] LABS: URINE BILIRUBIN - DIPSTICK NEGATIVE (NEGATIVE); URINE BLOOD DIPSTICK NEGATIVE (NEGATIVE); URINE COLOR YELLOW; URINE GLUCOSE - DIPSTICK >=1000 mg/dL (NEGATIVE); URINE KETONE NEGATIVE (NEGATIVE); URINE LEUK ESTERASE NEGATIVE (NEGATIVE); URINE NITRITE - DIPSTICK NEGATIVE (Negative); URINE PH 6.5 (4.5-8.0); URINE PROTEIN - DIPSTICK NEGATIVE (NEG-TRACE); URINE UROBILINOGEN - DIPSTICK 0.2 E.U./dL (0.2)
[2020-11-10 20:00] LABS: ALBUMIN 3.9 g/dL (3.2-5.0); ALKALINE PHOSPHATASE 73 u/l (38-126); ANION GAP 14 (6-22 (CALC)); BUN 13 mg/dL (7-17); BUN/CREATININE RATIO 25 (12-20 (CALC)); CARBON DIOXIDE 31 mmol/l (22-30); CHLORIDE 95 mmol/l (95-108); CREATININE 0.5 mg/dL (0.5-1.0); GFR > 60 ML/MIN (>=60 (CALC)); GFR FOR AFR.AMER. > 60 ML/MIN (>=60 (CALC)); POTASSIUM 4.2 mmol/l (3.5-5.1); SGOT/AST 21 u/l (14-36); SODIUM 135 mmol/l (137-146); TOTAL PROTEIN 7.5 g/dL (6.3-8.2)
[2020-11-10 20:03] LABS: BILIRUBIN, TOTAL 0.2 mg/dL (0.0-1.4)
[2020-11-10 23:20] VITALS: BP 147/77
== END 2020-11-10 23:15 | disposition home or self-care (01) | DRG 149 ==
LOC: ED 18:36
PROVIDERS: Emergency Medicine
DX: R42 Dizziness and giddiness (principal); E11.9 Type 2 diabetes mellitus without complications; I10 Essential (primary) hypertension; F32.9 Major depressive disorder, single episode, unspecified; Z79.4 Long term (current) use of insulin; Z79.899 Other long term (current) drug therapy

== ENCOUNTER 2021-01-24 20:50 | Emergency (ER) | payer BC, OTHER ==
[~2021-01-24] VITALS: Ht 162.6 cm; Wt 102.0 kg
[2021-01-24 21:42] LABS: HEMATOCRIT 43.9 % (37.0-47.0); HEMOGLOBIN 14.2 g/dl (12.0-16.0); IMMATURE GRANULOCYTES 0.6 % (0.0-5.0); MEAN CELL VOLUME 92.2 fL CALC (80.0-100.0); MEAN CORPUSCULAR HGB 29.8 pG CALC (26.0-32.0); MEAN CORPUSCULAR HGB CONC 32.3 g/dL CAL (32.0-36.0); NEUT# 5.18 thou/uL (2.00-7.15); RED BLOOD COUNT 4.76 mill/uL (4.20-5.60); RED CELL DISTRI WIDTH 12.8 % (11.5-15.5)
[2021-01-24 21:43] LABS: URINE BILIRUBIN - DIPSTICK NEGATIVE (NEGATIVE); URINE BLOOD DIPSTICK NEGATIVE (NEGATIVE); URINE COLOR YELLOW; URINE GLUCOSE - DIPSTICK 500 mg/dL (NEGATIVE); URINE KETONE NEGATIVE (NEGATIVE); URINE LEUK ESTERASE NEGATIVE (NEGATIVE); URINE PROTEIN - DIPSTICK NEGATIVE (NEG-TRACE); URINE SPECIFIC GRAVITY <=1.005
[2021-01-24 21:44] LABS: URINE NITRITE - DIPSTICK NEGATIVE (Negative)
[2021-01-24 21:54] LABS: ALBUMIN 3.8 g/dL (3.2-5.0); ALKALINE PHOSPHATASE 120 u/l (38-126); ANION GAP 13 (6-22 (CALC)); BILIRUBIN, TOTAL 0.6 mg/dL (0.0-1.4); BUN 10 mg/dL (7-17); BUN/CREATININE RATIO 18 (12-20 (CALC)); CARBON DIOXIDE 29 mmol/l (22-30); CHLORIDE 95 mmol/l (95-108); CREATININE 0.6 mg/dL (0.5-1.0); GFR > 60 ML/MIN (>=60 (CALC)); GFR FOR AFR.AMER. > 60 ML/MIN (>=60 (CALC)); POTASSIUM 4.1 mmol/l (3.5-5.1); SGOT/AST 28 u/l (14-36); SODIUM 133 mmol/l (137-146); TOTAL PROTEIN 7.4 g/dL (6.3-8.2)
[2021-01-24 22:27] VITALS: BP 146/75
== END 2021-01-24 22:30 | disposition home or self-care (01) | DRG 177 ==
LOC: ED 20:50
PROVIDERS: Family Medicine
DX: U07.1 COVID-19 (principal); J12.82 Pneumonia due to coronavirus disease 2019; I10 Essential (primary) hypertension; E11.9 Type 2 diabetes mellitus without complications; F32.9 Major depressive disorder, single episode, unspecified; Z79.4 Long term (current) use of insulin

== ENCOUNTER 2021-03-09 10:05 | Emergency (ER) | payer BC, OTHER ==
[~2021-03-09] VITALS: Ht 162.6 cm; Wt 107.0 kg
[2021-03-09 11:08] LABS: HEMATOCRIT 41.3 % (37.0-47.0); HEMOGLOBIN 12.9 g/dl (12.0-16.0); IMMATURE GRANULOCYTES 0.5 % (0.0-5.0); MEAN CELL VOLUME 94.5 fL CALC (80.0-100.0); MEAN CORPUSCULAR HGB 29.5 pG CALC (26.0-32.0); MEAN CORPUSCULAR HGB CONC 31.2 g/dL CAL (32.0-36.0); NEUT# 10.18 thou/uL (2.00-7.15); RED BLOOD COUNT 4.37 mill/uL (4.20-5.60); RED CELL DISTRI WIDTH 12.8 % (11.5-15.5)
[2021-03-09 11:15] LABS: ALBUMIN 3.9 g/dL (3.2-5.0); ALKALINE PHOSPHATASE 90 u/l (38-126); ANION GAP 12 (6-22 (CALC)); BILIRUBIN, TOTAL 0.4 mg/dL (0.0-1.4); BUN 14 mg/dL (7-17); BUN/CREATININE RATIO 24 (12-20 (CALC)); CARBON DIOXIDE 31 mmol/l (22-30); CHLORIDE 98 mmol/l (95-108); CREATININE 0.6 mg/dL (0.5-1.0); GFR > 60 ML/MIN (>=60 (CALC)); GFR FOR AFR.AMER. > 60 ML/MIN (>=60 (CALC)); POTASSIUM 3.9 mmol/l (3.5-5.1); SGOT/AST 19 u/l (14-36); SODIUM 138 mmol/l (137-146); TOTAL PROTEIN 7.5 g/dL (6.3-8.2)
[2021-03-09 11:25] LABS: URINE BILIRUBIN - DIPSTICK NEGATIVE (NEGATIVE); URINE BLOOD DIPSTICK NEGATIVE (NEGATIVE); URINE COLOR YELLOW; URINE GLUCOSE - DIPSTICK 250 mg/dL (NEGATIVE); URINE KETONE NEGATIVE (NEGATIVE); URINE LEUK ESTERASE NEGATIVE (NEGATIVE); URINE PROTEIN - DIPSTICK NEGATIVE (NEG-TRACE); URINE SPECIFIC GRAVITY >=1.030; URINE UROBILINOGEN - DIPSTICK 0.2 E.U./dL (0.2)
[2021-03-09 11:27] LABS: URINE NITRITE - DIPSTICK NEGATIVE (Negative)
[2021-03-09 11:29] LABS: LIPASE 137 u/l (23-300)
[2021-03-09] MEDS ORDERED: TORADOL PO (13:07)
[2021-03-09 13:09] VITALS: BP 126/77
== END 2021-03-09 13:15 | disposition home or self-care (01) | DRG 392 ==
LOC: ED 10:05
PROVIDERS: Emergency Medicine
DX: R10.9 Unspecified abdominal pain (principal); R42 Dizziness and giddiness; E11.9 Type 2 diabetes mellitus without complications; I10 Essential (primary) hypertension; F32.A Depression, unspecified; Z79.84 Long term (current) use of oral hypoglycemic drugs; Z79.4 Long term (current) use of insulin; Z86.16 Personal history of COVID-19
CPT/HCPCS: Q9967

== ENCOUNTER 2021-09-11 13:02 | Emergency (ER) | payer BC, OTHER ==
[~2021-09-11] VITALS: Ht 162.6 cm; Wt 109.4 kg
[~2021-09-11 13:02] MED LIST changes: +TORADOL PO
[2021-09-11 13:15] VITALS: BP 149/89
[2021-09-11 13:31] VITALS: BP 117/73
[2021-09-11 14:05] LABS: HEMATOCRIT 40.7 % (37.0-47.0); IMMATURE GRANULOCYTES 0.4 % (0.0-5.0); MEAN CELL VOLUME 94.2 fL CALC (80.0-100.0); MEAN CORPUSCULAR HGB 30.1 pG CALC (26.0-32.0); MEAN CORPUSCULAR HGB CONC 31.9 g/dL CAL (32.0-36.0); NEUT# 7.67 thou/uL (2.00-7.15); RED BLOOD COUNT 4.32 mill/uL (4.20-5.60); RED CELL DISTRI WIDTH 13.4 % (11.5-15.5)
[2021-09-11 14:06] LABS: URINE BILIRUBIN - DIPSTICK NEGATIVE (NEGATIVE); URINE BLOOD DIPSTICK NEGATIVE (NEGATIVE); URINE COLOR YELLOW; URINE GLUCOSE - DIPSTICK NEGATIVE (NEGATIVE); URINE KETONE NEGATIVE (NEGATIVE); URINE LEUK ESTERASE NEGATIVE (NEGATIVE); URINE PROTEIN - DIPSTICK NEGATIVE (NEG-TRACE)
[2021-09-11 14:07] VITALS: BP 114/84
[2021-09-11 14:08] LABS: URINE NITRITE - DIPSTICK NEGATIVE (Negative)
[2021-09-11 14:26] LABS: ALBUMIN 3.9 g/dL (3.2-5.0); ALKALINE PHOSPHATASE 100 u/l (38-126); ANION GAP 12 (6-22 (CALC)); BILIRUBIN, TOTAL 0.4 mg/dL (0.0-1.4); BUN 14 mg/dL (7-17); BUN/CREATININE RATIO 24 (12-20 (CALC)); CARBON DIOXIDE 28 mmol/l (22-30); CHLORIDE 100 mmol/l (95-108); CREATININE 0.6 mg/dL (0.5-1.0); GFR > 60 ML/MIN (>=60 (CALC)); GFR FOR AFR.AMER. > 60 ML/MIN (>=60 (CALC)); POTASSIUM 4.1 mmol/l (3.5-5.1); SGOT/AST 29 u/l (14-36); SODIUM 136 mmol/l (137-146); TOTAL PROTEIN 7.2 g/dL (6.3-8.2)
[2021-09-11 16:31] VITALS: BP 116/64
== END 2021-09-11 16:43 | disposition home or self-care (01) | DRG 103 ==
LOC: ED 13:02
PROVIDERS: Nurse Practitioner
DX: R51.9 Headache, unspecified (principal); M19.90 Unspecified osteoarthritis, unspecified site; I10 Essential (primary) hypertension; E11.9 Type 2 diabetes mellitus without complications; F32.A Depression, unspecified; Z79.84 Long term (current) use of oral hypoglycemic drugs; Z79.4 Long term (current) use of insulin

== ENCOUNTER 2021-10-14 20:59 | Emergency (ER) | payer BC, OTHER ==
[~2021-10-14] VITALS: Ht 162.6 cm; Wt 109.5 kg
[2021-10-14] VITALS (10 sets, daily range): BP systolic 104–127; BP diastolic 57–73
[2021-10-14] MEDS ORDERED: ULTRAM50 MG PO (23:51)
[2021-10-15] VITALS: BP 112/61
== END 2021-10-15 00:11 | disposition home or self-care (01) | DRG 605 ==
LOC: ED 20:59
DX: S00.03XA Contusion of scalp, initial encounter (principal); S70.02XA Contusion of left hip, initial encounter; S70.01XA Contusion of right hip, initial encounter; S16.1XXA Strain of muscle, fascia and tendon at neck level, initial encounter; S83.92XA Sprain of unspecified site of left knee, initial encounter; I10 Essential (primary) hypertension; E11.9 Type 2 diabetes mellitus without complications; F32.A Depression, unspecified; W18.2XXA Fall in (into) shower or empty bathtub, initial encounter; Y93.E1 Activity, personal bathing and showering; Y92.002 Bathroom of unspecified non-institutional (private) residence as the place of occurrence of the external cause; Z79.84 Long term (current) use of oral hypoglycemic drugs; Z79.4 Long term (current) use of insulin
CPT/HCPCS: L0120

== ENCOUNTER 2021-12-29 11:55 | Emergency (ER) | payer BC, OTHER ==
[~2021-12-29] VITALS: Ht 162.6 cm; Wt 109.1 kg
[2021-12-29 14:02] VITALS: BP 158/88
== END 2021-12-29 14:32 | disposition home or self-care (01) | DRG 103 ==
LOC: ED 11:55
DX: R51.9 Headache, unspecified (principal)

== ENCOUNTER 2023-06-01 13:20 | Observation (INO) | payer BC, OTHER ==
[2023-06-01] VITALS (18 sets, daily range): BP systolic 132–172; BP diastolic 79–113
[~2023-06-01] VITALS: Ht 162.6 cm; Wt 107.6 kg
[2023-06-01 13:46] LABS: BASO% 0.2 % (0-3); EOS% 1.7 % (0-8); HEMATOCRIT 43.8 % (37.0-47.0); HEMOGLOBIN 13.3 g/dl (12.0-16.0); IMMATURE GRANULOCYTES 0.2 % (0.0-5.0); LYMPH% 16.8 % (15-41); MEAN CELL VOLUME 89.9 fL CALC (80.0-100.0); MEAN CORPUSCULAR HGB 27.3 pG CALC (26.0-32.0); MEAN CORPUSCULAR HGB CONC 30.4 g/dL CAL (32.0-36.0); MONO% 5.2 % (2-13); NEUT% 75.9 % (42-76); RED BLOOD COUNT 4.87 mill/uL (4.20-5.60); RED CELL DISTRI WIDTH 15.3 % (11.5-15.5)
[2023-06-01 14:08] LABS: INTERNATIONAL NORMALIZED RATIO 1.1 RATIO (0.7-1.3); PROTHROMBIN TIME 10.4 SECONDS (9.0-12.5)
[2023-06-01 14:13] LABS: ALBUMIN 4.4 g/dL (3.2-5.0); ALKALINE PHOSPHATASE 126 u/l (38-126); ANION GAP 13 (6-22 (CALC)); BILIRUBIN, TOTAL 0.7 mg/dL (0.02-1.3); BUN 8 mg/dL (7-17); BUN/CREATININE RATIO 14 (12-20 (CALC)); CARBON DIOXIDE 28 mmol/l (22-30); CHLORIDE 104 mmol/l (95-108); CREATININE 0.6 mg/dL (0.5-1.0); GFR FOR AFR.AMER. > 60 ML/MIN (>=60 (CALC)); GFR OTHER RACES > 60 ML/MIN (>=60 (CALC)); POTASSIUM 3.8 mmol/l (3.5-5.1); SGOT/AST 38 u/l (14-36); SODIUM 141 mmol/l (137-146); TOTAL PROTEIN 8.1 g/dL (6.3-8.2)
[2023-06-01 14:26] LABS: CALCULATED LDLCHOLESTEROL 88 mg/dL (62-129 (CALC)); HDL CHOLESTEROL 26 mg/dL (39.0-59.0); TOTAL TRIGLYCERIDES 110 mg/dl (0-149); VLDL CHOLESTROL 22 mg/dl (2-49 (CALC))
[2023-06-01 14:57] LABS: CHOLESTEROL HDL RATIO 5.2 (<4.4 (CALC)); TOTAL CHOLESTEROL 136 mg/dl (0-199)
[2023-06-01 16:42] LABS: URINE BILIRUBIN - DIPSTICK Negative (NEGATIVE); URINE BLOOD DIPSTICK Negative (NEGATIVE); URINE GLUCOSE - DIPSTICK >=1000 mg/dL (NEGATIVE); URINE KETONE Negative (NEGATIVE); URINE LEUK ESTERASE Negative (NEGATIVE); URINE NITRITE - DIPSTICK Negative (Negative); URINE PH 5.5 (4.5-8.0); URINE PROTEIN - DIPSTICK Negative (NEG-TRACE); URINE SPECIFIC GRAVITY <=1.005
[2023-06-01 16:44] LABS: URINE COLOR Yellow
[2023-06-01] MEDS ORDERED: GABAPENTIN800 MG PO (19:05)
[2023-06-01] MEDS ORDERED: CELECOXIB200 MG PO (19:09)
[2023-06-01] MEDS ORDERED: LEVEMIR100 UNIT SC (19:46)
[2023-06-01] MEDS ORDERED: ATIVAN1 MG PO (19:49)
[2023-06-01] MEDS ORDERED: AMITRIPTYLINE H25 MG PO (19:52)
[2023-06-01] MEDS ORDERED: FARXIGA10 MG PO (19:53)
[2023-06-01] MEDS ORDERED: OZEMPIC 8 MG/3M1 INJ SC (19:54)
[2023-06-02 03:27] VITALS: BP 125/90
[2023-06-02 06:35] LABS: BASO% 0.3 % (0-3); HEMATOCRIT 39.5 % (37.0-47.0); HEMOGLOBIN 12.5 g/dl (12.0-16.0); IMMATURE GRANULOCYTES 0.4 % (0.0-5.0); LYMPH% 26.5 % (15-41); MEAN CELL VOLUME 89.8 fL CALC (80.0-100.0); MEAN CORPUSCULAR HGB 28.4 pG CALC (26.0-32.0); MEAN CORPUSCULAR HGB CONC 31.6 g/dL CAL (32.0-36.0); MONO% 5.1 % (2-13); NEUT# 7.37 thou/uL (2.00-7.15); NEUT% 64.7 % (42-76); RED BLOOD COUNT 4.4 mill/uL (4.20-5.60); RED CELL DISTRI WIDTH 14.9 % (11.5-15.5)
[2023-06-02 06:46] VITALS: BP 146/92
[2023-06-02 06:53] LABS: ALBUMIN 3.7 g/dL (3.2-5.0); ALKALINE PHOSPHATASE 121 u/l (38-126); ANION GAP 10 (6-22 (CALC)); BILIRUBIN, TOTAL 0.6 mg/dL (0.02-1.3); BUN 10 mg/dL (7-17); BUN/CREATININE RATIO 16 (12-20 (CALC)); CALCULATED LDLCHOLESTEROL 62 mg/dL (62-129 (CALC)); CARBON DIOXIDE 28 mmol/l (22-30); CHLORIDE 105 mmol/l (95-108); CHOLESTEROL HDL RATIO 4.8 (<4.4 (CALC)); CREATININE 0.7 mg/dL (0.5-1.0); GFR FOR AFR.AMER. > 60 ML/MIN (>=60 (CALC)); GFR OTHER RACES > 60 ML/MIN (>=60 (CALC)); HDL CHOLESTEROL 24 mg/dL (39.0-59.0); MAGNESIUM 2.2 mg/dL (1.6-2.3); POTASSIUM 3.6 mmol/l (3.5-5.1); SGOT/AST 25 u/l (14-36); SODIUM 140 mmol/l (137-146); TOTAL CHOLESTEROL 115 mg/dl (0-199); TOTAL PROTEIN 6.7 g/dL (6.3-8.2); TOTAL TRIGLYCERIDES 144 mg/dl (0-149); VLDL CHOLESTROL 29 mg/dl (2-49 (CALC))
[2023-06-02 10:20] VITALS: BP 137/89
[2023-06-02] MEDS ORDERED: ATOMOXETINE60 MG PO (11:31)
[2023-06-02] MEDS ORDERED: BUPROPION150 M3 PO (11:33)
[2023-06-02] MEDS ORDERED: LAMOTRIGINE150 MG PO (11:34)
[2023-06-02] MEDS ORDERED: CYCLOBENZAPRINE10 MG PO (11:42)
[2023-06-02] MEDS ORDERED: MOTRIN800 MG PO (11:44)
[2023-06-02] MEDS ORDERED: VITAMIN D1000 UNI2 PO (11:45)
[2023-06-02] MEDS ORDERED: TRIPLE OMEGA-3-6-9 PO (11:47)
[2023-06-02 12:12] VITALS: BP 141/94
[2023-06-02 12:14] VITALS: BP 141/94
[2023-06-02] MEDS ORDERED: ASPIRIN 81 LOW81 MG PO (13:18)
== END 2023-06-02 14:56 | disposition home or self-care (01) | DRG 93 ==
LOC: ED 13:20 → ED-I 15:30 → ED 15:56 → MS2 15:57
PROVIDERS: Nurse Practitioner; ADMIT Student in an Organized Health Care Education/Training Program; ATTEND Student in an Organized Health Care Education/Training Program
DX: R20.2 Paresthesia of skin (principal); R42 Dizziness and giddiness; R20.0 Anesthesia of skin; G44.209 Tension-type headache, unspecified, not intractable; R07.9 Chest pain, unspecified; I10 Essential (primary) hypertension; E11.40 Type 2 diabetes mellitus with diabetic neuropathy, unspecified; E66.01 Morbid (severe) obesity due to excess calories; F32.A Depression, unspecified; Z79.84 Long term (current) use of oral hypoglycemic drugs; Z79.4 Long term (current) use of insulin; Z86.73 Personal history of transient ischemic attack (TIA), and cerebral infarction without residual deficits
CPT/HCPCS: G0378; J1650; Q9967

== ENCOUNTER 2023-07-13 17:14 | Emergency (ER) | payer OTHER ==
[~2023-07-13] VITALS: Ht 162.6 cm; Wt 70.0 kg
[2023-07-13] VITALS (10 sets, daily range): BP systolic 111–148; BP diastolic 65–93
[~2023-07-13 17:14] MED LIST changes: +AMITRIPTYLINE H25 MG PO; +ASPIRIN 81 LOW81 MG PO; +ATIVAN1 MG PO; +ATOMOXETINE60 MG PO; +BUPROPION150 M3 PO; +CELECOXIB200 MG PO; +FARXIGA10 MG PO; +GABAPENTIN800 MG PO; +LAMOTRIGINE150 MG PO; +LEVEMIR100 UNIT SC; +MOTRIN800 MG PO; +OZEMPIC 8 MG/3M1 INJ SC; +TRIPLE OMEGA-3-6-9 PO; +VITAMIN D1000 UNI2 PO
[2023-07-13] MEDS ORDERED: ONDANSETRON HCl 4 MG/2 ML SDV IV ONE (17:30)
[2023-07-13] MEDS ORDERED: SODIUM CHLORIDE 0.9% 1,000 ML IV ONE ×2 (17:30→19:10)
[2023-07-13 17:53] LABS: BASO% 0.1 % (0-3); EOS% 0.5 % (0-8); HEMATOCRIT 45.2 % (37.0-47.0); HEMOGLOBIN 14.1 g/dl (12.0-16.0); IMMATURE GRANULOCYTES 0.1 % (0.0-5.0); LYMPH% 5.1 % (15-41); MEAN CELL VOLUME 86.4 fL CALC (80.0-100.0); MEAN CORPUSCULAR HGB CONC 31.2 g/dL CAL (32.0-36.0); MONO% 2.4 % (2-13); NEUT# 14.68 thou/uL (2.00-7.15); NEUT% 91.8 % (42-76); RED BLOOD COUNT 5.23 mill/uL (4.20-5.60); RED CELL DISTRI WIDTH 14.4 % (11.5-15.5)
[2023-07-13 18:06] LABS: HCG SERUM/URINE (NEG/POS) NEGATIVE (NEGATIVE)
[2023-07-13 18:09] LABS: ALBUMIN 4.3 g/dL (3.2-5.0); ALKALINE PHOSPHATASE 109 u/l (38-126); ANION GAP 13 (6-22 (CALC)); BILIRUBIN, TOTAL 0.9 mg/dL (0.02-1.3); BUN 19 mg/dL (7-17); BUN/CREATININE RATIO 32 (12-20 (CALC)); CARBON DIOXIDE 28 mmol/l (22-30); CHLORIDE 99 mmol/l (95-108); CREATININE 0.6 mg/dL (0.5-1.0); GFR FOR AFR.AMER. > 60 ML/MIN (>=60 (CALC)); GFR OTHER RACES > 60 ML/MIN (>=60 (CALC)); LIPASE 207 u/l (23-300); POTASSIUM 3.9 mmol/l (3.5-5.1); SGOT/AST 24 u/l (14-36); SODIUM 136 mmol/l (137-146); TOTAL PROTEIN 7.9 g/dL (6.3-8.2)
[2023-07-13 19:23] LABS: URINE BILIRUBIN - DIPSTICK Negative (NEGATIVE); URINE BLOOD DIPSTICK Negative (NEGATIVE); URINE COLOR Yellow; URINE GLUCOSE - DIPSTICK >=1000 mg/dL (NEGATIVE); URINE KETONE Negative (NEGATIVE); URINE LEUK ESTERASE Negative (NEGATIVE); URINE NITRITE - DIPSTICK Negative (Negative); URINE PH 5.5 (4.5-8.0); URINE PROTEIN - DIPSTICK Negative (NEG-TRACE); URINE SPECIFIC GRAVITY 1.015; URINE UROBILINOGEN - DIPSTICK 0.2 E.U./dL (0.2)
[2023-07-13] MEDS ORDERED: METOCLOPRAMIDE HCL 10 MG/2 ML SDV IV ONE (20:25)
[2023-07-13] MEDS ORDERED: KETOROLAC TROMETHAMINE 30 MG/ML SDV IV ONE (20:25)
[2023-07-13] MEDS ORDERED: DiphenhydrAMINE HCL 50 MG/ML SDV IV ONE (20:25)
== END 2023-07-13 21:50 | disposition home or self-care (01) ==
LOC: ED 17:14
PROVIDERS: Nurse Practitioner
DX: R11.2 Nausea with vomiting, unspecified (principal); R19.7 Diarrhea, unspecified; R51.9 Headache, unspecified; I10 Essential (primary) hypertension; E11.9 Type 2 diabetes mellitus without complications; F32.A Depression, unspecified; Z86.73 Personal history of transient ischemic attack (TIA), and cerebral infarction without residual deficits; Z79.84 Long term (current) use of oral hypoglycemic drugs; Z79.4 Long term (current) use of insulin; Z20.822 Contact with and (suspected) exposure to COVID-19

== ENCOUNTER 2024-02-10 13:27 | Emergency (ER) | payer OTHER ==
[~2024-02-10] VITALS: Ht 162.6 cm; Wt 90.7 kg
[2024-02-10] VITALS (12 sets, daily range): BP systolic 90–111; BP diastolic 49–72
[2024-02-10] MEDS ORDERED: PIPERACILLIN Sodium-Tazobactam 3.375 GM in SODIUM CHLORIDE 0.9% 100 ML IV ONE (13:45)
[2024-02-10 14:16] LABS: BASO% 0.3 % (0-3); EOS% 1.5 % (0-8); HEMATOCRIT 42.5 % (37.0-47.0); HEMOGLOBIN 13.5 g/dl (12.0-16.0); IMMATURE GRANULOCYTES 0.5 % (0.0-5.0); LYMPH% 22.1 % (15-41); MEAN CELL VOLUME 90.6 fL CALC (80.0-100.0); MEAN CORPUSCULAR HGB 28.8 pG CALC (26.0-32.0); MEAN CORPUSCULAR HGB CONC 31.8 g/dL CAL (32.0-36.0); MONO% 4.1 % (2-13); NEUT# 8.37 thou/uL (2.00-7.15); NEUT% 71.5 % (42-76); RED BLOOD COUNT 4.69 mill/uL (4.20-5.60); RED CELL DISTRI WIDTH 14.6 % (11.5-15.5)
[2024-02-10 14:33] LABS: CREATININE 0.9 mg/dL (0.5-1.0); POTASSIUM 3.4 mmol/l (3.5-5.1); TOTAL PROTEIN 7.4 g/dL (6.3-8.2)
[2024-02-10 14:36] LABS: BILIRUBIN, TOTAL 0.5 mg/dL (0.02-1.3)
[2024-02-10] MEDS ORDERED: BACTRIM DS1 TAB PO (15:58)
[2024-02-10] MEDS ORDERED: INSULIN REGULAR (HUMAN) 100 UNIT/ML INJ SC ONE (16:05)
--- NOTE | 2024-02-12 09:10 | NUR ---
FINAL WOUND CULTURE AND PRELIMINARY BLOOD CULTURE REPORTED TO DR MURRIETA. VIA MD CONTACT PT. IF SHE IS DOING WELL CONTINUE CURRENT THERAPY AND FOLLOW UP WITH FINAL BLOOD CULTURE WHEN RESULTED. IF SHE IS DOING WORSE HAVE PT COME BACK TO ED. CONTACTED PT. PT STATES SHE IS DOING SIMILAR. THAT SHE IS NOT FEELING WORSE AND SHE IS FOLLOWING UP WITH WOUND CARE. SHE STATES SHE IS FOLLOWING CARE INSTRUCTIONS AND CURRENTLY HAS NO SYSTEMIC SIGNS OR SYMPTOMS OF SICKNESS- NO FEVER, CHILLS, N/V, WORSENING WOUND. INFORMED PT TO COME BACK TO THE ED IF SHE STARTS TO FEEL SICK OR HER WOUND WORSENS.
== END 2024-02-10 16:27 | disposition home or self-care (01) | DRG 603 ==
LOC: ED 13:27
PROVIDERS: Emergency Medicine
PROC: 0H9NXZZ Drainage of Left Foot Skin, External Approach (ICD-10-PCS; principal; 2024-02-10)
DX: L02.612 Cutaneous abscess of left foot (principal); E11.9 Type 2 diabetes mellitus without complications; I10 Essential (primary) hypertension; Z86.73 Personal history of transient ischemic attack (TIA), and cerebral infarction without residual deficits; Z79.4 Long term (current) use of insulin; Z79.84 Long term (current) use of oral hypoglycemic drugs; Z79.85 Long-term (current) use of injectable non-insulin antidiabetic drugs

== ENCOUNTER 2024-02-14 09:47 | Observation (INO) | payer OTHER ==
[2024-02-14] VITALS (21 sets, daily range): BP systolic 86–134; BP diastolic 56–92
[~2024-02-14] VITALS: Ht 162.6 cm; Wt 103.6 kg
[~2024-02-14 09:47] MED LIST changes: +BACTRIM DS1 TAB PO
[2024-02-14] MEDS ORDERED: KETOROLAC TROMETHAMINE 30 MG/ML SDV IV ONE (10:00)
[2024-02-14] MEDS ORDERED: SODIUM CHLORIDE 0.9% 1,000 ML IV ONE (10:00)
[2024-02-14 10:17] LABS: BASO% 0.5 % (0-3); EOS% 2.1 % (0-8); HEMATOCRIT 44.3 % (37.0-47.0); HEMOGLOBIN 13.9 g/dl (12.0-16.0); IMMATURE GRANULOCYTES 0.6 % (0.0-5.0); LYMPH% 21.7 % (15-41); MEAN CELL VOLUME 92.1 fL CALC (80.0-100.0); MEAN CORPUSCULAR HGB 28.9 pG CALC (26.0-32.0); MEAN CORPUSCULAR HGB CONC 31.4 g/dL CAL (32.0-36.0); NEUT# 8.92 thou/uL (2.00-7.15); NEUT% 70.1 % (42-76); RED BLOOD COUNT 4.81 mill/uL (4.20-5.60); RED CELL DISTRI WIDTH 14.8 % (11.5-15.5)
[2024-02-14 10:39] LABS: BILIRUBIN, TOTAL 0.6 mg/dL (0.02-1.3); CREATININE 0.6 mg/dL (0.5-1.0); POTASSIUM 4.7 mmol/l (3.5-5.1); TOTAL PROTEIN 7.3 g/dL (6.3-8.2)
[2024-02-14] MEDS ORDERED: CLINDAMYCIN PHOSPHATE 50 ML IV ONE (11:20)
[2024-02-14] MEDS ORDERED: VANCOMYCIN HCL 1 GM in SODIUM CHLORIDE 0.9% 250 ML IV ONE (11:35)
[2024-02-14] MEDS ORDERED: TOPROL XL25 M1 PO (12:44)
[2024-02-14] MEDS ORDERED: ACETAMINOPHEN 325 MG/TAB PO PRN (13:35)
[2024-02-14] MEDS ORDERED: CYCLOBENZAPRINE HCL 5 MG TAB PO PRN (13:35)
[2024-02-14] MEDS ORDERED: SODIUM CHLORIDE 0.9% 1,000 ML IV PRN (13:35)
[2024-02-14] MEDS ORDERED: MAGNESIUM HYDROXIDE 30 ML UDC PO PRN (13:35)
[2024-02-14] MEDS ORDERED: DEXTROSE 250 ML IV PRN ×2 (13:40)
[2024-02-14] MEDS ORDERED: GABAPENTIN 100 MG/CAP PO SCH ×2 (14:00→14:30)
[2024-02-14] MEDS ORDERED: INSULIN DETEMIR 100 UNITS/ML SC SCH (14:00)
[2024-02-14] MEDS ORDERED: GABAPENTIN 300 MG/CAP PO SCH (14:30)
[2024-02-14] MEDS ORDERED: INSULIN LISPRO 100 UNITS/ML ML SC SCH (17:00)
[2024-02-14] MEDS ORDERED: LORazepam 1 MG/TAB PO SCH (17:00)
[2024-02-14] MEDS ORDERED: VANCOMYCIN HCL 1 GM in SODIUM CHLORIDE 0.9% 250 ML IV SCH (19:30)
[2024-02-14] MEDS ORDERED: lamoTRIgine 100 MG/TAB PO SCH (21:00)
[2024-02-14] MEDS ORDERED: ENOXAPARIN SODIUM 40 MG/0.4 ML SYR SC SCH (21:00)
[2024-02-14] MEDS ORDERED: ATORVASTATIN CALCIUM 10 MG/TAB PO SCH (21:00)
[2024-02-15 04:40] VITALS: BP 109/68
[2024-02-15 05:15] LABS: HEMOGLOBIN 12.4 g/dl (12.0-16.0); MEAN CELL VOLUME 93.7 fL CALC (80.0-100.0); RED BLOOD COUNT 4.27 mill/uL (4.20-5.60); RED CELL DISTRI WIDTH 14.8 % (11.5-15.5)
[2024-02-15 05:40] LABS: ALBUMIN 3.3 g/dL (3.2-5.0); BILIRUBIN, TOTAL 0.5 mg/dL (0.02-1.3); CREATININE 0.7 mg/dL (0.5-1.0); MAGNESIUM 2.3 mg/dL (1.6-2.3); POTASSIUM 4.1 mmol/l (3.5-5.1); TOTAL PROTEIN 6.2 g/dL (6.3-8.2)
[2024-02-15 07:11] VITALS: BP 122/87
[2024-02-15] MEDS ORDERED: ASPIRIN 81 MG/TAB PO SCH (09:00)
[2024-02-15] MEDS ORDERED: METOPROLOL SUCCINATE 25 MG/TAB-TOPROL XL PO SCH (09:00)
[2024-02-15] MEDS ORDERED: MUPIROCIN (PSEUDOMONAS FLUORES 22 GM/TUBE TUBE TOP SCH (10:00)
[2024-02-15] MEDS ORDERED: DOXYCYCLINE100 MG PO (11:19)
== END 2024-02-15 12:01 | disposition home or self-care (01) | DRG 872 ==
LOC: ED 09:47 → ED-I 11:18 → ED 11:34 → MS2 11:35
PROVIDERS: Emergency Medicine; ADMIT Internal Medicine; ATTEND Internal Medicine
DX: R78.81 Bacteremia (principal); R00.0 Tachycardia, unspecified; I95.9 Hypotension, unspecified; E11.621 Type 2 diabetes mellitus with foot ulcer; L97.529 Non-pressure chronic ulcer of other part of left foot with unspecified severity; I10 Essential (primary) hypertension; F32.A Depression, unspecified; E66.01 Morbid (severe) obesity due to excess calories; Z68.39 Body mass index [BMI] 39.0-39.9, adult; Z79.84 Long term (current) use of oral hypoglycemic drugs; Z79.4 Long term (current) use of insulin; Z86.73 Personal history of transient ischemic attack (TIA), and cerebral infarction without residual deficits
CPT/HCPCS: G0378; J1650

== ENCOUNTER 2024-04-18 15:58 | Emergency (ER) | payer OTHER ==
[2024-04-18] VITALS (7 sets, daily range): BP systolic 106–139; BP diastolic 53–80
[~2024-04-18] VITALS: Ht 162.6 cm; Wt 95.0 kg
[~2024-04-18 15:58] MED LIST changes: +DOXYCYCLINE100 MG PO; +LEVOFLOXACIN750 MG PO; +TOPROL XL25 M1 PO
[2024-04-18] MEDS ORDERED: VIBRAMYCIN100 M2 PO (17:55)
== END 2024-04-18 18:17 | disposition home or self-care (01) | DRG 603 ==
LOC: ED 15:58
DX: L03.115 Cellulitis of right lower limb (principal); S92.411A Displaced fracture of proximal phalanx of right great toe, initial encounter for closed fracture; E11.9 Type 2 diabetes mellitus without complications; I10 Essential (primary) hypertension; F32.A Depression, unspecified; X58.XXXA Exposure to other specified factors, initial encounter; Z86.73 Personal history of transient ischemic attack (TIA), and cerebral infarction without residual deficits; Z79.84 Long term (current) use of oral hypoglycemic drugs; Z79.4 Long term (current) use of insulin

== ENCOUNTER 2024-04-26 08:25 | Emergency (ER) | payer OTHER ==
[2024-04-26] VITALS (7 sets, daily range): BP systolic 120–166; BP diastolic 74–104
[~2024-04-26] VITALS: Ht 162.6 cm; Wt 101.0 kg
[~2024-04-26 08:25] MED LIST changes: +VIBRAMYCIN100 M2 PO
[2024-04-26] MEDS ORDERED: KETOROLAC TROMETHAMINE 15 MG/ML SDV IV ONE (08:50)
[2024-04-26] MEDS ORDERED: LORazepam 2 MG/ML IV ONE (08:50)
[2024-04-26] MEDS ORDERED: LABETALOL HCL 100 MG/20 ML VIAL IV ONE (08:50)
[2024-04-26] MEDS ORDERED: SODIUM CHLORIDE 0.9% 1,000 ML IV ONE (09:10)
[2024-04-26 09:19] LABS: BASO% 0.2 % (0-3); EOS% 1.1 % (0-8); HEMOGLOBIN 15.4 g/dl (12.0-16.0); IMMATURE GRANULOCYTES 0.5 % (0.0-5.0); LYMPH% 22.8 % (15-41); MEAN CELL VOLUME 92.5 fL CALC (80.0-100.0); MEAN CORPUSCULAR HGB 30.3 pG CALC (26.0-32.0); MEAN CORPUSCULAR HGB CONC 32.8 g/dL CAL (32.0-36.0); MONO% 4.5 % (2-13); NEUT# 9.96 thou/uL (2.00-7.15); NEUT% 70.9 % (42-76); RED BLOOD COUNT 5.08 mill/uL (4.20-5.60); RED CELL DISTRI WIDTH 13.7 % (11.5-15.5)
[2024-04-26 10:09] LABS: CREATININE 0.6 mg/dL (0.5-1.0); POTASSIUM 4.1 mmol/l (3.5-5.1)
[2024-04-26 10:10] LABS: ALBUMIN 4.7 g/dL (3.2-5.0); BILIRUBIN, TOTAL 0.9 mg/dL (0.02-1.3); TOTAL PROTEIN 8.6 g/dL (6.3-8.2)
[2024-04-26] MEDS ORDERED: TRAMADOL HYDROC50 M1 PO (10:34)
== END 2024-04-26 11:03 | disposition home or self-care (01) | DRG 552 ==
LOC: ED 08:25
PROVIDERS: Family Medicine
DX: M51.16 Intervertebral disc disorders with radiculopathy, lumbar region (principal); R00.0 Tachycardia, unspecified; I10 Essential (primary) hypertension; E11.9 Type 2 diabetes mellitus without complications; Z86.73 Personal history of transient ischemic attack (TIA), and cerebral infarction without residual deficits; F32.A Depression, unspecified; Z79.4 Long term (current) use of insulin; Z79.84 Long term (current) use of oral hypoglycemic drugs
CPT/HCPCS: J1885; J2060

== ENCOUNTER 2024-08-04 16:55 | Emergency (ER) | payer OTHER ==
[~2024-08-04] VITALS: Ht 162.6 cm; Wt 103.0 kg
[~2024-08-04 16:55] MED LIST changes: +TRAMADOL HYDROC50 M1 PO
[2024-08-04 17:12] VITALS: BP 120/76
[2024-08-04 17:15] VITALS: BP 116/74
[2024-08-04 17:30] VITALS: BP 119/74
[2024-08-04 17:45] VITALS: BP 105/63
[2024-08-04] MEDS ORDERED: KETOROLAC TROMETHAMINE 30 MG/ML SDV IM ONE (17:55)
[2024-08-04 18:00] VITALS: BP 112/60
[2024-08-04 18:10] VITALS: BP 112/60
== END 2024-08-04 18:19 | disposition home or self-care (01) | DRG 552 ==
LOC: ED 16:55
DX: M51.17 Intervertebral disc disorders with radiculopathy, lumbosacral region (principal); I10 Essential (primary) hypertension; E11.9 Type 2 diabetes mellitus without complications; F32.A Depression, unspecified; Z86.73 Personal history of transient ischemic attack (TIA), and cerebral infarction without residual deficits; Z79.84 Long term (current) use of oral hypoglycemic drugs; Z79.4 Long term (current) use of insulin